=== PATIENT | female | born 2000 | race Caucasian/White ===

== ENCOUNTER 2020-03-25 23:48 | Emergency (ER) | payer OTHER, SELFPAY ==
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
[2020-03-26 00:21] VITALS: BP 126/83; PULSE 102; RESP 18; TEMP 36.5; O2SAT 100
[2020-03-26] MEDS: IBUPROFEN 400 MG TABLET PO (02:40)
[2020-03-26] MEDS: CYCLOBENZAPRINE HCL 10 MG TABLET 5 MG PO (02:40)
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
[2020-03-26 04:15] VITALS: BP 99/69; PULSE 70; RESP 16; TEMP 36.4; O2SAT 99
== END 2020-03-26 04:16 | disposition home or self-care (01) ==
PROVIDERS: Emergency Provider General Practice; PCP Nurse Practitioner Family
DX: S16.1XXA Strain of muscle, fascia and tendon at neck level, initial encounter (principal); V43.52XA Car driver injured in collision with other type car in traffic accident, initial encounter
CPT/HCPCS: 72125; 99284; A9270; L0140

== ENCOUNTER 2021-05-22 12:15 | Emergency (ER) | payer OTHER, SELFPAY ==
--- NOTE | 2021-05-22 12:19 | ED.SKABFB ---
HPI - Skin/Abscess/Foreign Bdy General Chief complaint: Wound/Laceration Stated complaint: pos belly button infection Time Seen by Provider: 05/22/21 12:19 Source: patient and RN notes reviewed History of Present Illness HPI narrative: Patient is a 20-year-old female who presents the urgent care with complaints of a possible bellybutton infection. Patient states that she had a bellybutton ring which she took out today. States that for the last week or so she has been using alcohol around the area due to redness and drainage. Patient states it worsened last night and was starting to pus . Patient denies of fever, chills, nausea, vomiting. No other acute complaints. No acute distress noted patient read the plan of care. Some parts of this dictation were generated by voice recognition software and may contain typographical and/or grammatical inaccuracies. Related Data Allergies Allergy/AdvReac Type Severity Reaction Status Date / Time No Known Allergies Allergy Verified 05/22/21 12:25 Review of Systems Review of Systems: CONSTITUTIONAL: Denies fever, chills, or sweats. EYES: Denies visual changes, redness, or discharge. ENT: Denies rhinorrhea, congestion, sore throat, or otalgia. CARDIOVASCULAR: Denies chest pain, palpitations, or edema. RESPIRATORY: Denies cough or dyspnea. GASTROINTESTINAL: Denies abdominal pain, nausea, vomiting, or diarrhea. GENITOURINARY: Denies dysuria or hematuria. SKIN: Reports of redness, pain and swelling around the bellybutton. MUSCULOSKELETAL: Denies back pain, joint pain, or myalgia. NEUROLOGIC: Denies headache, numbness, or weakness. All other systems reviewed are negative, except as documented in HPI. [facility] Past Medical History Medical History (Updated 05/22/21 @ 12:35 by JUNIOR Christine) Patient denies medical problems Surgical History Surgical History (Updated 03/26/20 @ 04:06 by Brenda Solis MD) No pertinent past surgical history Social History Social History (Updated 03/26/20 @ 04:06 by Brenda Solis MD) Smoking status: Never smoker Comments At the time of my signature, I reviewed and agree with the nursing past medical, surgical, social, and family history. There is no relevant family history pertinent to the patient complaint. Exam Narrative: GENERAL: This is a well-nourished, well-developed patient, in no apparent distress. HEAD: normocephalic, atraumatic. EYES: PERRL. Sclera clear/white. Vision is grossly intact. EARS: External ears normal NOSE: External nose normal with no obvious nasal discharge, nares without redness, no rhinorrhea. THROAT: Mucous membranes moist NECK: Neck supple CARDIOVASCULAR: Regular rate and rhythm without murmurs, gallops, or rubs. RESPIRATORY: Clear to auscultation. Breath sounds equal bilaterally. No wheezes, rales, or rhonchi. SKIN: 1 x 1 cm area of erythema and firmness to the bellybutton region with slight erythemic haloing surrounding the entire bellybutton and scant yellow to clear drainage. Warm, intact with no suspicious lesions or rash, good texture and turgor. NEURO: awake, alert, and oriented to person, place and time. There were no obvious focal neurologic abnormalities. EXTREMITIES: No clubbing, cyanosis, or edema. Course Vital Signs Vital signs: Vital Signs Temperature 98.7 F 05/22/21 12:20 Pulse Rate 88 05/22/21 12:20 Respiratory Rate 16 05/22/21 12:20 Blood Pressure 118/77 05/22/21 12:20 Pulse Oximetry 100 05/22/21 12:20 Temperature 98.7 F 05/22/21 12:20 Pulse Rate 88 05/22/21 12:20 Respiratory Rate 16 05/22/21 12:20 Blood Pressure 118/77 05/22/21 12:20 Pulse Oximetry 100 05/22/21 12:20 Reviewed MDM - Skin/Abscess/Foreign Bdy MDM Narrative Medical decision making narrative: Advised patient to complete the oral antibiotic regimen as prescribed. Be sure to eat and drink with the medication. Clean the bellybutton with plain Dial soap and water. Make sure the bel
[2021-05-22 12:20] VITALS: BP 118/77; PULSE 88; RESP 16; TEMP 37.1; O2SAT 100
== END 2021-05-22 12:52 | disposition home or self-care (01) ==
PROVIDERS: Emergency Provider Nurse Practitioner Family; PCP Nurse Practitioner Family
DX: L03.316 Cellulitis of umbilicus (principal); L53.9 Erythematous condition, unspecified
CPT/HCPCS: 99213; G0463

== ENCOUNTER 2021-07-29 18:40 | Emergency (ER) | payer OTHER, SELFPAY ==
[2021-07-29 18:50] VITALS: BP 146/88; PULSE 107; RESP 16; TEMP 36.7; O2SAT 100
--- NOTE | 2021-07-29 18:52 | ED.GENADULT ---
HPI - General Adult General Chief complaint: Skin/Abscess/Foreign Body Stated complaint: Rash all over. Time Seen by Provider: 07/29/21 18:52 Source: patient Mode of arrival: ambulatory Limitations: no limitations History of Present Illness HPI narrative: 21-year-old female patient presents to the [facility] with complaints of a rash for the past 3 weeks. Patient states it started around the vaginal area and she went to her primary doctor and states that he gave her fluconazole because they thought it was yeast. Patient states she took econazole but states she continues to have the rash and now it is spread to bilateral lower extremities and bilateral upper extremities. Patient states she has been itching a lot lately. Denies any new pets to the house. Patient states nobody else in the house has the rash except for her. Patient states she has not been anywhere new or slept in any new places recently. Denies any new detergents, lotions. Related Data Allergies Allergy/AdvReac Type Severity Reaction Status Date / Time No Known Allergies Allergy Verified 05/22/21 12:25 Review of Systems Review of Systems: CONSTITUTIONAL: Denies fever, chills, or sweats. EYES: Denies visual changes, redness, or discharge. ENT: Denies rhinorrhea, congestion, sore throat, or otalgia. CARDIOVASCULAR: Denies chest pain, palpitations, or edema. RESPIRATORY: Denies cough or dyspnea. GASTROINTESTINAL: Denies abdominal pain, nausea, vomiting, or diarrhea. GENITOURINARY: Denies dysuria or hematuria. SKIN: Positive rash and itching x3 weeks MUSCULOSKELETAL: Denies back pain, joint pain, or myalgia. NEUROLOGIC: Denies headache, numbness, or weakness. PSYCHIATRIC: Denies anxiety or depression. [facility] Past Medical History Medical History Patient denies medical problems Surgical History Surgical History No pertinent past surgical history Family History Family History (Updated 07/29/21 @ 18:53 by JUNIOR Lozano) Other Cerebrovascular accident Hypertension Social History Social History Smoking status: Never smoker Comments At the time of my signature I agree with nursing past medical history, surgical, social, and family history. There is no relevant family history pertinent to the presenting complaint. Exam Narrative: GENERAL: Well-appearing, well-nourished, and in no acute distress. HEAD: Normocephalic, atraumatic. EYES: PERRLA and EOMI. ENT: Nares clear, no rhinorrhea or epistaxis. Mucous membranes moist. NECK: Supple. No lymphadenopathy CHEST: Clear to auscultation. No respiratory distress. HEART: Regular rate and rhythm. No murmur heard. Normal peripheral pulses. ABDOMEN: Soft, nontender, nondistended, normal active bowel sounds. EXTREMITIES: Normal range of motion. No edema. SKIN: Warm, dry, patient has small petechiae looking rash on dry foundation noted to bilateral arms and left leg. No open wounds or drainage. NEURO: No focal deficits. Alert and oriented x3. Course Course Level of Care: Express Care Visit Vital Signs Vital signs: Vital Signs Temperature 36.7 C 07/29/21 18:50 Pulse Rate 107 H 07/29/21 18:50 Respiratory Rate 16 07/29/21 18:50 Blood Pressure 146/88 H 07/29/21 18:50 Pulse Oximetry 100 07/29/21 18:50 Temperature 36.7 C 07/29/21 18:50 Pulse Rate 107 H 07/29/21 18:50 Respiratory Rate 16 07/29/21 18:50 Blood Pressure 146/88 H 07/29/21 18:50 Pulse Oximetry 100 07/29/21 18:50 Vital signs reviewed The patient has been informed that they may have pre-hypertension or Hypertension based on a BP reading in the department. I recommend that the patient call the primary care provider listed on their discharge instructions or a physician of their choice this week to arrange follow up for further evaluation of possible pre-
== END 2021-07-29 19:06 | disposition home or self-care (01) ==
PROVIDERS: Emergency Provider Nurse Practitioner Family; PCP Nurse Practitioner Family
DX: R21 Rash and other nonspecific skin eruption (principal)
CPT/HCPCS: 99213; G0463

== ENCOUNTER 2021-07-29 23:28 | Emergency (ER) | payer OTHER, SELFPAY ==
[2021-07-29 23:31] VITALS: BP 136/86; PULSE 99; RESP 20; TEMP 36.4; O2SAT 99
--- NOTE | 2021-07-30 02:32 | ED.GENADULT ---
HPI - General Adult General Chief complaint: Wound/Laceration Stated complaint: Right index finger lac Time Seen by Provider: 07/30/21 01:18 History of Present Illness HPI narrative: Patient is a 21-year-old female who presents to the emergency department with chief complaint of laceration to right index finger. The patient reports she was working with a new suture kit at home while she is in a [employer] program and had a scalpel that hit the top of her right index finger. The patient states she has a small laceration that continued to bleed and she came to the emergency department for evaluation. The patient reports her tetanus status is up-to-date. The patient reports she is able to move her finger denies any numbness or tingling. Related Data Allergies Allergy/AdvReac Type Severity Reaction Status Date / Time No Known Allergies Allergy Verified 07/29/21 23:34 Review of Systems Review of Systems: A 10 system review of systems was completed on the patient and is negative except for what is stated in the HPI. Nursing and ancillary documentation was reviewed. PMFSH Past Medical History Medical History Patient denies medical problems Surgical History Surgical History No pertinent past surgical history Family History Family History Other Cerebrovascular accident Hypertension Social History Social History Smoking status: Never smoker Exam Narrative: GENERAL: Well-appearing, well-nourished, and in no acute distress. HEAD: Normocephalic, atraumatic. EYES: PERRLA and EOMI. ENT: Nares clear, no rhinorrhea or epistaxis. Mucous membranes moist. NECK: Supple. CHEST: Clear to auscultation. No respiratory distress. HEART: Regular rate and rhythm. No murmur heard. Normal peripheral pulses. ABDOMEN: Soft, nontender, nondistended, normal active bowel sounds. EXTREMITIES: Normal range of motion. No edema. There is a 1/2 cm laceration to the dorsum of the right index finger SKIN: Warm, dry, no rash. NEURO: No focal deficits. Alert and oriented x3. PSYCH: Normal mood and affect. Course Vital Signs Vital signs: Vital Signs Temperature 36.4 C L 07/29/21 23:31 Pulse Rate 99 07/29/21 23:31 Respiratory Rate 20 07/29/21 23:31 Blood Pressure 136/86 07/29/21 23:31 Pulse Oximetry 99 07/29/21 23:31 Temperature 36.4 C L 07/29/21 23:31 Pulse Rate 99 07/29/21 23:31 Respiratory Rate 20 07/29/21 23:31 Blood Pressure 136/86 07/29/21 23:31 Pulse Oximetry 99 07/29/21 23:31 Procedures Laceration Laceration 1: Date: 07/30/21 Time: 02:34 Site: hand (Right index finger) Side (If applicable): right Size (cm): 0.5 Description: linear Depth: simple, single layer Local Anesthetic: lidocaine 1% Amount of anesthesia used (mL): 2 Pre-repair: wound explored and irrigated ====== Skin Level ====== Skin layer closed with: nylon Size (cm): 4-0 Number of sutures: 2 Technique: simple, interrupted ====== Subcutaneous Layer ====== ====== Muscle Layer ====== ====== Tendon Layer ====== Medical Decision Making Vital Signs Vital Signs: Vital Signs Temperature 36.4 C L 07/29/21 23:31 Pulse Rate 99 07/29/21 23:31 Respiratory Rate 20 07/29/21 23:31 Blood Pressure 136/86 07/29/21 23:31 Pulse Oximetry 99 07/29/21 23:31 Temperature 36.4 C L 07/29/21 23:31 Pulse Rate 99 07/29/21 23:31 Respiratory Rate 20 07/29/21 23:31 Blood Pressure 136/86 07/29/21 23:31 Pulse Oximetry 99 07/29/21 23:31 Discharge Plan Discharge Clinical Impression: Laceration of right index finger Qualifiers: Encounter type: initial encou
== END 2021-07-30 02:57 | disposition home or self-care (01) ==
PROVIDERS: Emergency Provider Emergency Medicine; PCP Nurse Practitioner Family
DX: S61.210A Laceration without foreign body of right index finger without damage to nail, initial encounter (principal); W26.8XXA Contact with other sharp object(s), not elsewhere classified, initial encounter
CPT/HCPCS: 12001; 99213; 99282; G0463

== ENCOUNTER 2022-03-26 18:04 | Emergency (ER) | payer OTHER, SELFPAY ==
[2022-03-26] VITALS (10 sets, daily range): BP systolic 114–138; BP diastolic 75–90; PULSE 87; RESP 16; TEMP 36.9; O2SAT 98–100
--- NOTE | ~2022-03-26 | CT_ITS ---
EXAMINATION: CT brain wo con DATE: 03/26/2022 21:30 INDICATION: syncope, seizure-like activity? . TECHNIQUE: Computed tomography (CT) of the head was performed without intravenous contrast. The mA wa s adjusted according to patient size. Iterative reconstruction technique was employed. The dose-lengt h product was 605.33 mGy-cm. COMPARISON: None FINDINGS: No acute intracranial hemorrhage or extra-axial fluid collection. No hydrocephalus, mass, or herniation. No acute ischemic infarct. Unremarkable dural venous sinus attenuation. No acute osseous abnormality. The aerated spaces are clear. IMPRESSION: No acute intracranial process. Reviewed, dictated and finalized at location [facility].
--- NOTE | 2022-03-26 18:40 | ECG_ITS ---
Measurements Intervals [place] Rate: 84 P: 61 [place]: 146 QRS: 72 QRSD: 76 T: 47 QT: 361 QTc: 427 Interpretive Statements SINUS RHYTHM WITH SINUS ARRHYTHMIA NORMAL ECG NO PREVIOUS ECG AVAILABLE FOR COMPARISON Electronically Signed On 03-26-2022 20:43:43 CDT by Rick Patel D.O.
[2022-03-26 18:55] LABS: Basophils Absolute Auto 0.1 K/mm3 (0.0-0.1); Basophils Percent Auto 0.5 % (0.2-1.2); Eosinophils Absolute Auto 0.1 K/mm3 (0-0.3); Eosinophils Percent Auto 1.2 % (0-4.4); Hematocrit 40.7 % (37.0-47.0); Hemoglobin 13.5 g/dL (12.0-15.0); Immature Granulocyte Absolute 0.03 K/mm3 (0.00-0.031); Immature Granulocyte Percent A 0.3 % (0-0.5); Lymphocytes Absolute Auto 1.95 K/mm3 (0.9-3.2); Lymphocytes Percent Auto 21.2 % (18.3-44.2); Mean Corpuscular HGB Conc 33.2 g/dl (32-36); Mean Corpuscular Hemoglobin 28.2 pg (26-34); Monocytes Absolute Auto 0.7 K/mm3 (0.1-0.6); Neutrophils Absolute Auto 6.3 K/mm3 (1.3-6.7); Neutrophils Percent Auto 68.8 % (45.5-73.1); Platelet Count Result 256 k/mm3 (150-375); Red Blood Count 4.79 M/mm3 (4.2-5.4); Red Cell Distribution Width 13.2 % (11.5-14.5); White Blood Count 9.2 K/mm3 (4.5-10.0)
[2022-03-26 19:10] LABS: Alanine Aminotransferase 16 U/L (6-35); Albumin Level 4.7 g/dL (3.5-5.1); Alkaline Phosphatase 62 U/L (38-126); Anion Gap 15 mmol/L (8-16); Aspartate Amino Transferase 23 U/L (14-36); Bilirubin,Total 0.4 mg/dL (0.2-1.3); Blood Urea Nitrogen 14 mg/dL (7-17); Calcium 8.9 mg/dL (8.4-10.2); Carbon Dioxide 22 mmol/L (22-30); Chloride 103 mmol/L (98-107); Estimated CRCL calculation 107 ml/min; Estimated Glomerular Filt Rate > 60; Glucose 79 mg/dL (65-110); Potassium 3.5 mmol/L (3.4-5.0); Sodium 140 mmol/L (137-145)
--- NOTE | 2022-03-26 20:58 | ED.SYNCOPE ---
HPI - Syncope General Chief Complaint: Syncope Stated Complaint: passed out, LOC, convulsions Time Seen by Provider: 03/26/22 20:51 History of Present Illness HPI narrative: Patient is a 21-year-old female here for evaluation of syncopal episode earlier today. 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 Patient stepped back from surgery, fell down and had loss of consciousness for about 30 seconds. Patient states that are not watching stated that she turned bishop , and possibly had convulsions, although patient denies any history of seizures. Patient came to afterwards and is not amnestic to the events leading up to the syncopal episodes of the events afterwards. She states that she has diffuse headache currently, denies any nausea, vomiting, chest pain, shortness of breath, leg swelling, fevers or chills. Related Data Home Medications Medication Instructions Recorded Confirmed escitalopram oxalate 10 mg tablet 10 mg PO DAILY 03/01/22 03/01/22 (Lexapro) Allergies Allergy/AdvReac Type Severity Reaction Status Date / Time No Known Allergies Allergy Verified 03/06/22 14:43 Review of Systems Review of Systems: Gen.: Reports syncopal episode earlier today. Denies fevers or chills Eyes: Denies eye pain or visual change ENT: Denies congestion Respiratory: Denies shortness of breath or cough CV: Denies chest pain or palpitations GI: Denies abdominal pain nausea, emesis or diarrhea denies burning, urgency, frequency or hematuria Musculoskeletal: Denies back pain or muscle pain Neuro: Reports headache. Denies numbness, tingling, weakness or focal weakness Skin: Denies rash Except as documented, all other systems reviewed and negative [facility] Past Medical History Medical History Patient denies medical problems Surgical History Surgical History No pertinent past surgical history Family History Family History Other Cerebrovascular accident Hypertension Uterine cancer Social History Social History Smoking status: Never smoker Alcohol intake: never Substance use: never Gender identity (if verbalized by the patient): Female Sexual Orientation (if Verbalized by the Patient): Straight or Heterosexual Exam Narrative: APPEARANCE: Well appearing, no pain in distress, well-nourished. Head: Normocephalic and atraumatic. EYES: PERRLA/EOMI, conjunctivae clear NOSE: No nasal drainage EARS: External ear normal in appearance THROAT: Oropharynx is clear. Mucous membranes are moist. NECK: Supple. No adenopathy, no masses. RESPIRATORY: Airway patent, respirations nonlabored. Clear to auscultation bilaterally, no rales, rhonchi, wheezing. CARDIOVASCULAR: Regular rate and rhythm without murmurs, rubs, or gallops. ABDOMINAL: Normoactive bowel sounds. Soft, nontender, nondistended. No rebound tenderness or guarding. MUSCULOSKELETAL: No calf tenderness. Extremities are warm and well-perfused. Moves all extremities well. No edema. NEURO: Cranial nerves II through XII intact. Normal speech. No focal neurologic deficits. SKIN: Skin is warm and dry. No rashes. PSYCHIATRIC: Normal affect/mood. Course Vital Signs Vital signs: Vital Signs Temperature 98.4 F 03/26/22 18:36 Pulse Rate 87 03/26/22 18:36 Respiratory Rate 16 03/26/22 18:36 Blood Pressure 138/90 03/26/22 18:36 Pulse Oximetry 100 03/26/22 18:36 Oxygen Delivery Room Air 03/26/22 18:36 Temperature 98.4 F 03/26/22 18:36 Pulse Rate 87 03/26/22 18:36 Respiratory Rate 16 03/26/22 18:36 Blood Pressure 114/77 03/26/22 21:33 Pulse Oximetry 100 03/26/22 21:50 Oxygen Delivery Ro
[2022-03-26] MEDS: ACETAMINOPHEN 325 MG TABLET 650 MG PO (21:41)
== END 2022-03-26 22:00 | disposition home or self-care (01) ==
PROVIDERS: Emergency Medicine; Emergency Provider Emergency Medicine; PCP Nurse Practitioner Family
DX: R55 Syncope and collapse (principal)
CPT/HCPCS: 36415; 70450; 80053; 81025; 85025; 93005; 99284; A9270

== ENCOUNTER 2022-05-10 04:42 | Emergency (ER) | payer OTHER, SELFPAY ==
[2022-05-10 04:47] VITALS: BP 134/86; PULSE 107; RESP 18; TEMP 36.9; O2SAT 100
--- NOTE | 2022-05-10 05:10 | ED.GENADULT ---
HPI - General Adult General Chief complaint: Unspecified Stated complaint: sore throat Time Seen by Provider: 05/10/22 04:43 History of Present Illness HPI narrative: Patient is a 21-year-old female who presents ER with sore throat. Ongoing for 5 days. Associated with fever. No cough. No runny nose. Exposed to a friend with strep. Went to urgent care and had a negative test. Patient believes test was inadequate. Related Data Home Medications Medication Instructions Recorded Confirmed escitalopram oxalate 10 mg tablet 10 mg PO DAILY 03/01/22 03/01/22 (Lexapro) Allergies Allergy/AdvReac Type Severity Reaction Status Date / Time No Known Allergies Allergy Verified 03/06/22 14:43 Review of Systems Review of Systems: All systems reviewed & are unremarkable except as noted in HPI and below Constitutional: Constitutional: Reports chills, Denies fatigue and Reports fever(s) ENT: Denies nasal congestion, Denies nasal discharge, Reports sore throat and Denies throat swelling Respiratory: Respiratory: Denies cough, Denies dyspnea and Denies wheezing PMFSH Past Medical History Medical History Patient denies medical problems Surgical History Surgical History No pertinent past surgical history Family History Family History Other Cerebrovascular accident Hypertension Uterine cancer Social History Social History Smoking status: Never smoker Alcohol intake: never Substance use: never Gender identity (if verbalized by the patient): Female Sexual Orientation (if Verbalized by the Patient): Straight or Heterosexual Exam Narrative: GENERAL: Well-appearing, well-nourished, and in no acute distress. HEAD: Normocephalic, atraumatic. ENT: Mucous membranes moist. Pharyngeal erythema without tonsillar hypertrophy or exudate. NECK: Supple. CHEST: Clear to auscultation. No respiratory distress. HEART: Regular rate and rhythm. Normal peripheral pulses. EXTREMITIES: Normal range of motion. No edema. NEURO: Alert and oriented x3. PSYCH: Normal mood and affect. Course Course Emergency Course: Strep negative. Will not start your 12 L fluid was finished as beyond treatment line does and is low risk from having any complications. Discharge home. Vital Signs Vital signs: Vital Signs Temperature 98.5 F 05/10/22 04:47 Pulse Rate 107 H 05/10/22 04:47 Respiratory Rate 18 05/10/22 04:47 Blood Pressure 134/86 05/10/22 04:47 Pulse Oximetry 100 05/10/22 04:47 Oxygen Delivery Room Air 05/10/22 04:47 Temperature 98.5 F 05/10/22 04:47 Pulse Rate 107 H 05/10/22 04:47 Respiratory Rate 18 05/10/22 04:47 Blood Pressure 134/86 05/10/22 04:47 Pulse Oximetry 100 05/10/22 04:47 Oxygen Delivery Room Air 05/10/22 04:47 Medical Decision Making Vital Signs Vital Signs: Vital Signs Temperature 98.5 F 05/10/22 04:47 Pulse Rate 107 H 05/10/22 04:47 Respiratory Rate 18 05/10/22 04:47 Blood Pressure 134/86 05/10/22 04:47 Pulse Oximetry 100 05/10/22 04:47 Oxygen Delivery Room Air 05/10/22 04:47 Temperature 98.5 F 05/10/22 04:47 Pulse Rate 107 H 05/10/22 04:47 Respiratory Rate 18 05/10/22 04:47 Blood Pressure 134/86 05/10/22 04:47 Pulse Oximetry 100 05/10/22 04:47 Oxygen Delivery Room Air 05/10/22 04:47 Lab Data Labs: Strep Screen Presumptive Negative *(Reference Range: Negative)* Discharge Plan Discharge Clinical Impression: Pharyngitis Patient Disposition: Home, Self-Care Condition: Stable Instructions: Pharyngitis (ED) Additional Instructions: Return to the ER if you cannot breathe, you cannot swallow, or you have carolann
== END 2022-05-10 05:22 | disposition home or self-care (01) ==
PROVIDERS: Emergency Provider Emergency Medicine; PCP Nurse Practitioner Family
DX: J02.9 Acute pharyngitis, unspecified (principal)
CPT/HCPCS: 87081; 87147; 87880; 99283

== ENCOUNTER 2022-10-19 21:11 | Emergency (ER) | payer OTHER, SELFPAY ==
--- NOTE | ~2022-10-19 | XR_ITS ---
EXAMINATION: XR chest 2V DATE: 10/20/2022 01:36 INDICATION: Cough and shortness of breath TECHNIQUE: PA and lateral views of the chest are obtained. COMPARISON: 06/27/2022 FINDINGS: The lungs are free of acute opacities. No pleural effusion or pneumothorax. The cardiomedia stinal silhouette is normal. The visualized bones and soft tissues are unremarkable. IMPRESSION: 1. No acute cardiopulmonary abnormality. Reviewed, dictated and finalized at location A.
[2022-10-19 21:25] VITALS: BP 116/66; PULSE 134; RESP 24; TEMP 37.9; O2SAT 100
[2022-10-19 21:47] LABS: Basophils Absolute Auto 0.1 K/mm3 (0.0-0.1); Basophils Percent Auto 0.3 % (0.2-1.2); Eosinophils Percent Auto 0.1 % (0-4.4); Hematocrit 40.6 % (37.0-47.0); Hemoglobin 13.9 g/dL (12.0-15.0); Immature Granulocyte Absolute 0.09 K/mm3 (0.00-0.031); Immature Granulocyte Percent A 0.5 % (0-0.5); Lymphocytes Absolute Auto 0.59 K/mm3 (0.9-3.2); Lymphocytes Percent Auto 3.1 % (18.3-44.2); Mean Corpuscular HGB Conc 34.2 g/dl (32-36); Mean Corpuscular Hemoglobin 28.6 pg (26-34); Mean Corpuscular Volume 83.5 fl (80-100); Monocytes Absolute Auto 0.9 K/mm3 (0.1-0.6); Monocytes Percent Auto 4.7 % (2.6-8.5); Neutrophils Absolute Auto 17.3 K/mm3 (1.3-6.7); Neutrophils Percent Auto 91.3 % (45.5-73.1); Platelet Count Result 271 k/mm3 (150-375); Red Blood Count 4.86 M/mm3 (4.2-5.4); Red Cell Distribution Width 12.8 % (11.5-14.5)
[2022-10-19 21:59] LABS: Alanine Aminotransferase 19 U/L (6-35); Albumin Level 4.6 g/dL (3.5-5.1); Alkaline Phosphatase 71 U/L (38-126); Anion Gap 12 mmol/L (8-16); Aspartate Amino Transferase 30 U/L (14-36); Blood Urea Nitrogen 8 mg/dL (7-17); Calcium 9.1 mg/dL (8.4-10.2); Carbon Dioxide 19 mmol/L (22-30); Chloride 106 mmol/L (98-107); Estimated CRCL calculation 117 ml/min; Estimated Glomerular Filt Rate > 60; Glucose 117 mg/dL (65-110); Potassium 3.5 mmol/L (3.4-5.0); Sodium 137 mmol/L (137-145)
[2022-10-19 22:11] LABS: Strep Group A RT-PCR NOT DETECTED (Negative)
[2022-10-19 22:22] LABS: Influenza A QL RT-PCR Negative (Negative); Influenza B QL RT-PCR Negative (Negative); RSV RNA, RT-PCR Negative (Negative); SARS-CoV-2 RNA PCR Negative
[2022-10-20] VITALS (10 sets, daily range): BP systolic 96–112; BP diastolic 62–77; PULSE 92–96; RESP 16; O2SAT 99–100
[2022-10-20] MEDS: ONDANSETRON INJ 4 MG/2 ML VIAL IV PUSH (01:51)
[2022-10-20] MEDS: SODIUM CHLORIDE 0.9% IV 1,000 ML 999 ML IV CONT ×2 (01:52→03:02)
[2022-10-20 02:29] LABS: Lactic Acid Reflex 2.2 mmol/L (0.7-2.0)
[2022-10-20 02:36] LABS: Appearance Urine Cloudy (Clear); Bacteria Urine Rare /hpf; Bilirubin Urine Negative (Negative); Blood Urine Negative (Negative); Color Urine Dark Yellow (Yellow); Glucose Urine UA Negative (Negative); Ketones Urine 2+ mg/dL (Negative); Leukocyte Esterase Ur Trace LEU/UL (Negative); Mucus Urine Present /lpf; Nitrate Urine Negative (Negative); Protein Urine 2+ mg/dL (Negative); Squamous Epithelial Cell Urine Occasional /hpf (Few); WBC Urine 0-5 /hpf; pH Urine 7.5 (5.0-9.0)
[2022-10-20 02:37] LABS: Specific Grav Ur 1.037 (1.001-1.035)
[2022-10-20 02:38] LABS: Add Urine Microscopic? YES
[2022-10-20 03:03] LABS: Monoscreen Negative (Negative); Negative Monotest Control Negative (Negative); Positive Monotest Control Positive (Positive)
--- NOTE | 2022-10-20 03:48 | ED.GENADULT ---
HPI - General Adult General Chief complaint: Fever Stated complaint: Fever, nasuea, weakness, ST, from Time Seen by Provider: 10/20/22 01:00 History of Present Illness HPI narrative: Patient 22-year-old female who presents emerged part with chief complaint of sore throat. Patient reports that for several days she has had a sore throat generalized body aches little bit of nasal congestion and reports that she went to urgent care. The patient states she was sent to the emergency department because she was running a fever and was tachycardic. Patient states with symptoms or not improved by anything. Related Data Home Medications Medication Instructions Recorded Confirmed escitalopram oxalate 10 mg tablet 10 mg PO DAILY 03/01/22 03/01/22 (Lexapro) Allergies Allergy/AdvReac Type Severity Reaction Status Date / Time No Known Allergies Allergy Verified 10/19/22 21:30 Review of Systems Review of Systems: A 10 system review of systems was completed on the patient and is negative except for what is stated in the HPI. Nursing and ancillary documentation was reviewed. [facility] Past Medical History Medical History Patient denies medical problems Surgical History Surgical History No pertinent past surgical history Family History Family History Other Cerebrovascular accident Hypertension Uterine cancer Social History Social History Smoking status: Never smoker Alcohol intake: never Substance use: never Living arrangements: alone Occupation/Education: occupation Gender identity (if verbalized by the patient): Female Sexual Orientation (if Verbalized by the Patient): Straight or Heterosexual Exam Narrative: GENERAL: Well-appearing, well-nourished, and in no acute distress. HEAD: Normocephalic, atraumatic. EYES: PERRLA and EOMI. ENT: Nares clear, no rhinorrhea or epistaxis. Mucous membranes moist. There is slight erythema of the oropharynx NECK: Supple. CHEST: Clear to auscultation. No respiratory distress. HEART: Regular rate and rhythm. No murmur heard. Normal peripheral pulses. ABDOMEN: Soft, nontender, nondistended, normal active bowel sounds. EXTREMITIES: Normal range of motion. No edema. SKIN: Warm, dry, no rash. NEURO: No focal deficits. Alert and oriented x3. PSYCH: Normal mood and affect. Course Vital Signs Vital signs: Vital Signs Temperature 37.9 C H 10/19/22 21:25 Pulse Rate 134 H 10/19/22 21:25 Respiratory Rate 24 H 10/19/22 21:25 Blood Pressure 116/66 10/19/22 21:25 Pulse Oximetry 100 10/19/22 21:25 Oxygen Delivery Room Air 10/19/22 21:25 Temperature 37.9 C H 10/19/22 21:25 Pulse Rate 92 10/20/22 03:04 Respiratory Rate 16 10/20/22 03:04 Blood Pressure 102/70 10/20/22 03:04 Pulse Oximetry 99 10/20/22 03:04 Oxygen Delivery Room Air 10/19/22 21:25 Medical Decision Making MDM Narrative Medical decision making narrative: Differential diagnosis includes viral syndrome, strep pharyngitis, mono, COVID, influenza Laboratory studies were obtained which showed a white blood cell count of 19,000. The patient had a lactic acid of 2.2 upon initial arrival electrolytes were otherwise within normal limits. Urinalysis showed no evidence of UTI but did have specific gravity of 1037 and 2+ ketones. Alexander was negative influenza negative RSV was negative strep was also negative. Patient received 2 L of normal saline Vital Signs Vital Signs: Vital Signs Temperature 37.9 C H 10/19/22 21:25 Pulse Rate 134 H 10/19/22 21:25 Respiratory Rate 24 H 10/19/22 21:25 Blood Pressure 116/66 10/19/22 21:25 Pulse Oximetry 100 10/19/22 21:25 Oxygen Delivery Room Air 10/19/22 21:25 T
[2022-10-20 05:15] LABS: Reflex Lactic Acid Yes or No Add Lactic
== END 2022-10-20 04:13 | disposition home or self-care (01) ==
PROVIDERS: Emergency Provider Emergency Medicine; PCP Nurse Practitioner Family
DX: J02.9 Acute pharyngitis, unspecified (principal); Z20.822 Contact with and (suspected) exposure to COVID-19
CPT/HCPCS: 36415; 71046; 80053; 81001; 81025; 83605; 85025; 86308; 87637; 87651; 96361; 96365; 96375; 99284; J0131; J2405; J7030

== ENCOUNTER 2023-03-12 16:20 | Outpatient (CLI) | payer OTHER, MEDICAID, SELFPAY ==
[2023-03-12 17:23] LABS: Basophils Percent Auto 0.5 % (0.2-1.2); Eosinophils Absolute Auto 0.1 K/mm3 (0-0.3); Eosinophils Percent Auto 0.7 % (0-4.4); Hematocrit 42.2 % (37.0-47.0); Hemoglobin 13.8 g/dL (12.0-15.0); Immature Granulocyte Absolute 0.02 K/mm3 (0.00-0.031); Immature Granulocyte Percent A 0.2 % (0-0.5); Lymphocytes Absolute Auto 1.61 K/mm3 (0.9-3.2); Lymphocytes Percent Auto 19.9 % (18.3-44.2); Mean Corpuscular HGB Conc 32.7 g/dl (32-36); Mean Corpuscular Hemoglobin 27.9 pg (26-34); Mean Corpuscular Volume 85.3 fl (80-100); Mean Platelet Volume 11.9 fl (7.4-10.4); Monocytes Absolute Auto 0.5 K/mm3 (0.1-0.6); Monocytes Percent Auto 6.3 % (2.6-8.5); Neutrophils Absolute Auto 5.9 K/mm3 (1.3-6.7); Neutrophils Percent Auto 72.4 % (45.5-73.1); Platelet Count Result 268 k/mm3 (150-375); Red Blood Count 4.95 M/mm3 (4.2-5.4); Red Cell Distribution Width 13.1 % (11.5-14.5); White Blood Count 8.1 K/mm3 (4.5-10.0)
[2023-03-12 17:35] LABS: Alanine Aminotransferase 16 U/L (6-35); Albumin Level 4.9 g/dL (3.5-5.1); Alkaline Phosphatase 63 U/L (38-126); Anion Gap 11 mmol/L (8-16); Aspartate Amino Transferase 27 U/L (14-36); Bilirubin,Total 0.5 mg/dL (0.2-1.3); Blood Urea Nitrogen 10 mg/dL (7-17); Calcium 9.3 mg/dL (8.4-10.2); Carbon Dioxide 24 mmol/L (22-30); Chloride 105 mmol/L (98-107); Cholesterol 120 mg/dL (0-200); Estimated Glomerular Filt Rate > 60; Glucose 99 mg/dL (65-110); HDL Direct 48 mg/dL; Magnesium 2.1 mg/dL (1.6-2.3); Potassium 3.6 mmol/L (3.4-5.0); Sodium 140 mmol/L (137-145); Triglycerides 36 mg/dL (<150)
[2023-03-12 17:46] LABS: LDL Cholesterol Direct 59 mg/dL
[2023-03-12 18:46] LABS: Folic Acid > 20.0 ng/mL (2.76->20)
[2023-03-12 19:32] LABS: Vitamin D 25 Hydroxy 44.1 ng/mL
[2023-03-12 19:58] LABS: Iron 60 ug/dL (37-170); Percent Iron Saturation 14 % (20-50)
== END 2023-03-12 16:21 | disposition home or self-care (01) ==
LOC: ANHLAB 16:23
PROVIDERS: PCP Nurse Practitioner Family; Visit Provider Nurse Practitioner Family
DX: R53.83 Other fatigue (principal); Z13.220 Encounter for screening for lipoid disorders; R25.2 Cramp and spasm
CPT/HCPCS: 36415; 80053; 80061; 82306; 82607; 82728; 82746; 83036; 83540; 83550; 83735; 84443; 85025; 86038

== ENCOUNTER 2024-05-10 06:27 | Outpatient (NON) | payer OTHER, MEDICAID, SELFPAY ==
[2024-05-10 06:57] LABS: Hematocrit 38.3 % (37.0-47.0); Hemoglobin 13.1 g/dL (12.0-15.0); Mean Corpuscular HGB Conc 34.2 g/dl (32-36); Mean Corpuscular Hemoglobin 28.1 pg (26-34); Mean Platelet Volume 11.1 fl (7.4-10.4); Platelet Count Result 255 k/mm3 (150-375); Red Blood Count 4.67 M/mm3 (4.2-5.4); Red Cell Distribution Width 13.1 % (11.5-14.5); White Blood Count 6.9 K/mm3 (4.5-10.0)
[2024-05-10 07:14] LABS: Alanine Aminotransferase 16 U/L (6-35); Albumin Level 4.4 g/dL (3.5-5.1); Alkaline Phosphatase 62 U/L (38-126); Anion Gap 11 mmol/L (4-12); Aspartate Amino Transferase 27 U/L (14-36); Bilirubin,Total 0.4 mg/dL (0.2-1.3); Blood Urea Nitrogen 9 mg/dL (7-17); Calcium 9.4 mg/dL (8.4-10.2); Carbon Dioxide 25 mmol/L (22-30); Chloride 103 mmol/L (98-107); Estimated Glomerular Filt Rate > 60; Glucose 93 mg/dL (65-110); Potassium 3.9 mmol/L (3.4-5.0); Sodium 139 mmol/L (137-145)
[2024-05-10 10:01] LABS: Vitamin D 25 Hydroxy 22.5 ng/mL
== END 2024-05-10 06:28 | disposition home or self-care (01) ==
LOC: ANHLAB 06:34
PROVIDERS: PCP Obstetrics & Gynecology; Visit Provider Obstetrics & Gynecology
DX: R53.83 Other fatigue (principal)
CPT/HCPCS: 36415; 80053; 82306; 82607; 84443; 85027

== ENCOUNTER 2024-05-11 16:33 | Emergency (ER) | payer OTHER, SELFPAY ==
--- NOTE | ~2024-05-11 | XR_ITS ---
HISTORY: acute right sided neck pain no injury x 3 hrs ago COMPARISON: 03/26/2020 TECHNIQUE: 3 views of the cervical spine were performed. FINDINGS: Visualization of the cervical spine to the superior endplate of T1. Straightening and slight reversal of the normal curvature of the cervical spine is identified, possib ly muscular in origin. No prevertebral soft tissue swelling is appreciated. No acute compression fracture is noted. Limited visualization of the dens and its relationship to the pillars of C1. Air column within the trachea is midline. The visualized portions of the bilateral upper lung callaway are unremarkable. IMPRESSION: Straightening and slight reversal of the normal curvature of the cervical spine, possibly muscular in origin. Limited evaluation of the dens and its relationship to the pillars of C1, as detailed above. Reviewed, dictated and finalized at location A. ICE GIRL IMPRESSION: Straightening and slight reversal of the normal curvature of the cervical spine , possibly muscular in origin. Limited evaluation of the dens and its relationship to the pillars of C1, as de tailed above.
[2024-05-11 16:41] VITALS: BP 153/105; PULSE 108; RESP 18; TEMP 37.3; O2SAT 100
--- NOTE | 2024-05-11 17:22 | ED_ITS ---
HPI - Neck Pain/Injury General Chief Complaint: Neck Pain/Injury Stated Complaint: Neck Pain Time Seen by Provider: 05/11/24 17:15 Source: patient, RN notes reviewed and old records reviewed Mode of arrival: ambulatory Limitations: no limitations History of Present Illness HPI Narrative: 23 year old female presents to [facility] with complaints of sudden right sided neck pain which started about 2 hors ago. Patient reports that she was trying on some new clothes at home and sudden pain occurred to the right side of her neck and she had to lay down. Patient states that pain does radiate to her posterior shoulder area also. Patient reports no know injury has not lifted anything heavy at home no work related injury suspected. Patient denies any ear pain or any sore throat denies any fevers, chills or body aches. Patient denies any tingling or numbness to her upper extremities with full ROM noted. patient reports that she took Tylenol and Ibuprfen before she came to clinic with minimal decrease in pain. MD complaint: other (right neck pain) Onset (ago): hour(s) (2 hours prior to arrival) Severity scale (1-10): 7 Treatments prior to arrival: acetaminophen and ibuprofen Related Data Allergies Allergy/AdvReac Type Severity Reaction Status Date / Time No Known Allergies Allergy Verified 05/11/24 16:41 Review of Systems Review of Systems: CONSTITUTIONAL: Denies fever, chills, or sweats. EYES: Denies visual changes, redness, or discharge. ENT: Denies rhinorrhea, congestion, sore throat, or otalgia. CARDIOVASCULAR: Denies chest pain, palpitations, or edema. RESPIRATORY: Denies cough or dyspnea. GASTROINTESTINAL: Denies abdominal pain, nausea, vomiting, or diarrhea. GENITOURINARY: Denies dysuria or hematuria. SKIN: Denies rash or itching. MUSCULOSKELETAL: Reports right sided neck pain, or myalgia. NEUROLOGIC: Denies headache, numbness, or weakness. PSYCHIATRIC: Denies anxiety or depression. 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 There is no relevant family history pertinent to the presenting complaint Exam Narrative: GENERAL: Well-appearing, well-nourished, and in some acute distress related to neck pain. HEAD: Normocephalic, atraumatic. EYES: PERRLA and EOMI. ENT: Nares clear, no rhinorrhea or epistaxis. Mucous membranes moist. NECK: pain to her right side of neck increased pain with movement, no tingling or numbness to upper extremities adequate pulses to arms. Patient reports some radiation of pain to right posterior shoulder CHEST: Clear to auscultation. No respiratory distress.JONATAN 100% on room air HEART: Regular rate and rhythm. No murmur heard. Normal peripheral pulses. ABDOMEN: Soft, nontender, nondistended, normal active bowel sounds. EXTREMITIES: Normal range of motion. No edema. SKIN: Warm, dry, no rash. NEURO: No focal deficits. Alert and oriented x3. Course Course Emergency Course: Patient is aware of diagnosis, understands and agrees to treatment plan.? Anticipatory guidance given.? Patient agrees to follow-up as directed and is aware of reasons to seek care at the emergency department. Portions of this record may have been created with voice recognition software Level of Care: Express Care Visit Vital Signs Vital signs: Vital Signs Temperature 37.3 C 05/11/24 16:41 Pulse Rate 108 H 05/11/24 16:41 Respiratory Rate 18 05/11/24 16:41 Blood Pressure 153/105 H 05/11/24 16:41 Pulse Oximetry 100 05/11/24 16:41 Oxygen Delivery Room Air 05/11/24 16:41 Temperature 37.3 C 05/11/24 16:41 Pulse Rate 108 H 05/11/24 16:41 Respiratory Rate 18 05/11/24 16:41 Blood Pressure 153/105 H 05/11/24 16:41 Pulse Oximetry 100 05/11/24 16:41 Oxygen Delivery Room Air 05/11/24 16:41 Reviewed MDM - Neck Pain/Injury Differential Diagnosis Differential diagnosis: Likely disc disorder of cervical region, torticollis, strain of neck muscle and other (muscle spasm) Medical Records Attestation: I reviewed the patient's medical records. Imaging Data Attestation: I personally reviewed and interpreted this imaging study as follows: My impression: Limited straightening and slight reversal of the normal curvature of cervical spine possible muscular in origin Radiologist's impression: [facility] [address] [place] [address] XRay Report Signed Patient: Melody Michelle : 2000 MR#: [id number] Age: 23 Acct:[id number] Loc: [facility] ADM Date: 05/11/24Attending Dr: Ordering Physician: Genny Nino APRN Date of Service: 05/11/24 Procedure(s): XR cervical spine 2-3V Accession Number(s): [id number] cc: PREFABRICATOR PHYSICIAN; Genny Nino APRN~ HISTORY: acute right sided neck pain no injury x 3 hrs ago COMPARISON: 03/26/2020 TECHNIQUE: 3 views of the cervical spine were performed. FINDINGS: Visualization of the cervical spine to the superior endplate of T1. Straightening and slight reversal of the normal curvature of the cervical spine is identified, possibly muscular in origin. No prevertebral soft tissue swelling is appreciated. No acute compression fracture is noted. Limited visualization of the dens and its relationship to the pillars of C1. Air column within the trachea is midline. The visualized portions of the bilateral upper lung callaway are unremarkable. IMPRESSION: Straightening and slight reversal of the normal curvature of the cervical spine, possibly muscular in origin. Limited evaluation of the dens and its relationship to the pillars of C1, as detailed above. Reviewed, dictated and finalized at location A. TERRAIN VEHICLE RACER Dictated By: Arelis Escalante MD 05/11/241804 Signed By: <Electronically signed by Arelis Escalante MD in OV> 05/11/241806 Critical Care Time Critical Care Time Critical Care Time: No Discharge Plan Discharge Clinical Impression: Cervical paraspinal muscle spasm, Neck pain on right side Patient Disposition: Home, Self-Care Condition: Stable Instructions: Muscle Spasm (ED), Acute Neck Pain (ED) Additional Instructions: Ice and heat to the area for 20-30 minutes Gentle stretching exercises Gentle massage Caution with lifting, bending, stooping, twisting Avoid pushing, pulling take muscle relaxants as directed--caution drowsiness and no driving or alcohol Anti-inflammatory medicine as directed--take with food He may take the muscle relaxant and anti-inflammatory at the same time steroids as prescribed with food Follow-up with your PCP if not improving in 5-7 days If your symptoms persist, change or worsen significantly before you can contact your personal physician then please, without delay, go to the emergency department for further evaluation. Follow-up with PCP in 7-10 days or sooner if needed Follow up with PCP soon in regards to your blood pressure which is elevated above threshold for referral. Blood pressure above 120/80 may indicate pre- hypertension. 153/105 Prescriptions: New ibuprofen 600 mg tablet 600 mg PO QID PRN (Reason: pain) Qty: 30 0RF prednisone 20 mg tablet 20 mg PO BID Qty: 10 0RF Rx Instructions: take with food cyclobenzaprine 10 mg tablet 10 mg PO TID PRN (Reason: muscle spasm) Qty: 20 0RF Rx Instructions: no driving while taking or operating machinery absolutely no alcohol No Action norethindrone (contraceptive) 0.35 mg tablet 0.35 mg PO DAILY Qty: 84 0RF Follow-up/Referrals: PHYSICIAN,PREFABRICATOR [Primary Care Provider] - Time of Disposition: 18:14 Quality Amina Coma Scale Eyes: Open Verbal: Oriented and Alert Motor: Follows Commands [place] Coma Total Score: 15
== END 2024-05-11 18:22 | disposition home or self-care (01) ==
PROVIDERS: Emergency Provider Registered Nurse
DX: M62.838 Other muscle spasm (principal); M54.2 Cervicalgia
CPT/HCPCS: 72040; 99213; G0463

== ENCOUNTER 2024-12-25 16:16 | Emergency (ER) | payer OTHER, SELFPAY ==
[2024-12-25 16:35] VITALS: BP 128/89; PULSE 118; RESP 20; TEMP 36.7; O2SAT 99
--- NOTE | 2024-12-25 17:47 | ED.ANXIETY ---
HPI - Anxiety General Chief Complaint: Anxiety Stated Complaint: Anxiety Time Seen by Provider: 12/25/24 18:47 Focused HPI: 24 y/o F with reported hx of depression and anxiety presents to the ED for mental health. Pt states this past week she has been sleeping a lot, not eating or drinking, having a lot of anxiety. Pt states she has been thinking of her mom who 5 years ago which has heightened her emotions. Denies SI or HI. Denies hallucinations. Pt states she found some old Auvelity in her cabinet and has taken one pill a day for the past 3 days. She is not on any other psych meds. Denies drug and ETOH use. Pt states she feels very anxious. GENERAL: Anxious-appearing, well-nourished, and in no acute distress. HEAD: Normocephalic, atraumatic. CHEST: Clear to auscultation. ?No respiratory distress. HEART: Regular rate and rhythm.? NEURO: ?Alert and oriented x3. Patient screened in triage and initial orders placed.? ?Additional care and disposition to be based upon?diagnostic testing and treatment. History of Present Illness HPI narrative: Agree with the above triage. Related Data Allergies Allergy/AdvReac Type Severity Reaction Status Date / Time No Known Allergies Allergy Verified 05/11/24 16:41 Review of Systems Review of Systems: All systems reviewed & are unremarkable except as noted in HPI and below PMFSH Past Medical History Medical History Anxiety Patient denies medical problems Surgical History Surgical History No pertinent past surgical history Family History Family History Other Cerebrovascular accident Hypertension Uterine cancer Social History Social History Smoking status: Never smoker Alcohol intake: never Substance use: never Substance use type: does not use Living arrangements: alone Additional living arrangements comments: single Occupation/Education: occupation 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 HEAD: Normocephalic, atraumatic. EYES: EOMI. ENT: Nares clear, no rhinorrhea or epistaxis. Mucous membranes moist. NECK: Supple. CHEST: Clear to auscultation. No respiratory distress. HEART: Regular rate and rhythm. No murmur heard. Normal peripheral pulses. EXTREMITIES: Normal range of motion. No edema. SKIN: Warm, dry, no rash. NEURO: No focal deficits. Alert and oriented x3 PSYCH: Anxious, tearful. Denies SI or HI. No hallucinations, not responding to internal stimuli on exam. Seems to have good judgment and insight. Course Vital Signs Vital signs: Vital Signs Temperature 98.1 F 12/25/24 16:35 Pulse Rate 118 H 12/25/24 16:35 Respiratory Rate 20 12/25/24 16:35 Blood Pressure 128/89 12/25/24 16:35 Pulse Oximetry 99 12/25/24 16:35 Oxygen Delivery Room Air 12/25/24 16:35 Temperature 98.4 F 12/25/24 18:53 Pulse Rate 97 12/25/24 18:53 Respiratory Rate 20 12/25/24 18:53 Blood Pressure 122/85 12/25/24 18:53 Pulse Oximetry 100 12/25/24 18:53 Oxygen Delivery Room Air 12/25/24 16:35 MDM - Anxiety MDM Narrative Medical decision making narrative: 24-year-old female with reported history of anxiety depression presents emergency department for increase in anxiety. Patient states it is approaching the 5 years of when her mother which may be contributing to her symptoms. Patient is tachycardic in triage but is very anxious appearing, tearful. She denies SI or HI. No hallucinations or evidence of psychosis. I do not feel patient needs further workup in the emergency department and does not require inpatient admission. She is given a dose of hydroxyzine in the ED and this was sent to the pharmacy p.r.n.. She was given follow-up for PCP and return precautions. Heart rate improved prior to discharge. All questions answered. Discharged in stable condition. Discharge Plan Discharge Clinical Impression: Acute anxiety Patient Disposition: Home Condition: Stable Instructions: Antibiotic Form, Anxiety (ED) Additional Instructions: You were evaluated in the emergency department for anxiety and depression. Please follow-up closely with primary care provider. Return to the emergency department if you develop thoughts of harming herself or other people, hallucinations, or other concerning symptoms. Patient Language: Portuguese Prescriptions: New hydroxyzine HCl 25 mg tablet 25 mg PO QID PRN (Reason: anxiety) Qty: 14 0RF No Action ibuprofen 600 mg tablet 600 mg PO QID PRN (Reason: pain) Qty: 30 0RF prednisone 20 mg tablet 20 mg PO BID Qty: 10 0RF Rx Instructions: take with food cyclobenzaprine 10 mg tablet 10 mg PO TID PRN (Reason: muscle spasm) Qty: 20 0RF Rx Instructions: no driving while taking or operating machinery absolutely no alcohol norethindrone (contraceptive) 0.35 mg tablet 0.35 mg PO DAILY Qty: 28 0RF Rx Instructions: needs appointment for further refills Follow-up/Referrals: PHYSICIAN,FLEXO PRESS OPERATOR [Primary Care Provider] - Temitope Miller DO [Physician] -
[2024-12-25] MEDS: hydrOXYzine HCL 25 MG TABLET PO (18:06)
[2024-12-25 18:53] VITALS: BP 122/85; PULSE 97; RESP 20; TEMP 36.9; O2SAT 100
== END 2024-12-25 18:52 | disposition home or self-care (01) ==
LOC: ANHED 18:56
PROVIDERS: Emergency Provider Physician Assistant
DX: F41.9 Anxiety disorder, unspecified (principal)
CPT/HCPCS: 99283; A9270

== ENCOUNTER 2025-02-08 11:17 | Outpatient (CLI) | payer OTHER, SELFPAY ==
[2025-02-08 11:36] LABS: Hematocrit 42.2 % (37.0-47.0); Hemoglobin 13.5 g/dL (12.0-15.0); Mean Corpuscular HGB Conc 32.0 g/dl (32-36); Mean Corpuscular Hemoglobin 26.9 pg (26-34); Mean Corpuscular Volume 84.2 fl (80-100); Platelet Count Result 254 k/mm3 (150-375); Red Blood Count 5.01 M/mm3 (4.2-5.4); White Blood Count 6.8 K/mm3 (4.5-10.0)
--- OUTSIDE RECORDS SUMMARY | 2025-02-08 11:44 | XMS_ITS | Referral Summary ---
Author Organization [facility] Address [address] [place] [address] Care Team Providers Care Career Technology Teacher Name Role Phone Rocio Watts NP Primary Care Provider Allergies No known active allergies Medications ondansetron ODT (ZOFRAN-ODT) 4 mg disintegrating tablet Take 1 tablet (4 mg total) by mouth every 8 (eight) hours as needed for nausea or vomiting 20 tablet 3 Active metoclopramide (REGLAN) 10 mg tablet Take 1 tablet (10 mg total) by mouth 3 (three) times a day as needed (Nausea/vomi ting) 20 tablet 3 Active magnesium citrate solution Take 296 mL by mouth once for 1 dose 296 mL 3 Active nitrofurantoin monohydrate (MACROBID) 100 mg capsule Take 1 capsule (100 mg total) by mouth 2 (two) times a day 10 capsule 3 Active Social History Tobacco Use Types Packs/Day Years Used Date Smoking Tobacco: Never Smokeless Tobacco: Never Tobacco Cessation:Counseling Given: Not Answered Alcohol Use Standard Drinks/Week Comments Never 0 (1 standard drink = 0.6 oz pur e alcohol) Personal Safety Answer Date Recorded Have you ever been in or are you currently in a harmful physical or emotional relationship or is someone making you feel afraid or unsafe? Denies 05/28/2023 Comments No Sex and Gender Information Value Date Recorded Sex Assigned at Not on file Legal Sex Female 9:55 PM DIRECTOR HAIR Gender Identity Not on file Sexual Orientation Not on file Last Filed Vital Signs Vital Sign Reading Time Taken Comments Blood Pressure 110/64 06/24/2023 10:13 PM DIRECTOR HAIR Pulse 75 06/24/2023 10:13 PM DIRECTOR HAIR Temperature 36.9 C (98.4 F) 06/24/2023 7:07 PM DIRECTOR HAIR Respiratory Rate 16 06/24/2023 10:13 PM DIRECTOR HAIR Oxygen Saturation 99% 06/24/2023 10:13 PM DIRECTOR HAIR Inhaled Oxygen Concentration - - Weight 63.5 kg (140 lb) 06/24/2023 7:07 PM DIRECTOR HAIR Height 170.2 cm (5' 7) 06/24/2023 7:07 PM DIRECTOR HAIR Body Mass Index 21.93 06/24/2023 7:07 PM DIRECTOR HAIR Plan of Treatment Not on file [place] [address] [facility] ID[facility] Care Teams Career Technology Teacher Relationship Specialty Start Date End Date Rocio Watts NP [address] [place] [id number] PCP - General Nurse Practitioner 06/10/22
--- OUTSIDE RECORDS SUMMARY | 2025-02-08 11:44 | XMS_ITS | Clinical Summary ---
Author Organization [facility] Address [address] [place] [address] Care Team Providers Care Crane Hoist Or Lift Operator Name Role Phone Rocio Watts NP Primary [...] on file Legal Sex Female 9:55 PM PARALEGAL Gender Identity Not on file Sexual Orientation Not on file Obstetrics History Last Filed Vital Signs Vital Sign Reading Time Taken Comments Blood Pressure 110/64 06/24/2023 10:13 PM PARALEGAL Pulse 75 06/24/2023 10:13 PM PARALEGAL Temperature 36.9 C (98.4 F) 06/24/2023 7:07 PM PARALEGAL Respiratory Rate 16 06/24/2023 10:13 PM PARALEGAL Oxygen Saturation 99% 06/24/2023 10:13 PM PARALEGAL Inhaled Oxygen Concentration - - Weight 63.5 kg (140 lb) 06/24/2023 7:07 PM PARALEGAL Height 170.2 cm (5' 7) 06/24/2023 7:07 PM PARALEGAL Body Mass Index 21.93 06/24/2023 7:07 PM PARALEGAL Plan of Treatment Health Maintenance Due Date Last Done Comments Cervical Cancer Screening 2000 Depression Screening 2000 Hepatitis C Screening 2000 Regular Well Visit/Exam 18-64 2018 Covid-19 Vaccine (2023- 5 season) 2024 02/22/2022, 02/02/2021, 01/12/2021 Influenza Vaccine (#1) 2025 , 06/21/2021, 06/11/2021, Additional history exists DTaP/Tdap/Td Vaccine (7 - Td or Tdap) 08/07/2031 08/07/2021, 01/11/2012, 11/26/2001, Additional history exists Hepatitis B Screening Completed 02/26/2001 , 2000, 2000 Pneumococcal vaccine <65 Completed 002, 2000, 2000, Additional history exists Varicella Vaccines Completed 01/11/2012, 06/03/2001 HPV Vaccines Completed 06/14/2016, 02/2016, 12/12/[address] [place] [address] [facility] [employer] Care Teams Crane Hoist Or Lift Operator Relationship Specialty Start Date End Date Watts, Rocio Connell NP [address] [place] [address] PCP - General Nurse Practitioner 06/10/22
--- OUTSIDE RECORDS SUMMARY | 2025-02-08 11:44 | XMS_ITS | Clinical Summary ---
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 This disclosure is being madepursuant to the Care Everywhere program and may not contain all information available regarding this patient. Last updated 18.[facility] Allergies No known active allergies Medications * Be aware that medications may not be up to date on this document. Alwaysverify current medications with the patient. famotidine (PEPCID) 20 MG tablet Take 1 Tab by mouth once daily. 30 Tab 0 08/24/2014 Active aluminum & magnesium hydroxide (MAALOX) 200-200 MG/5ML suspension Take 10 mL by mouth 3 times daily with meals. 250 mL 0 08/25/2014 Active metoprolol tartrate (LOPRESSOR) 50 MG tablet Take 1 Tab by mouth once daily 2 Tab 0 09/08/2015 Active Family History Medical History Relation Name Comments Pacemaker Maternal Grandmother CVA<65(female) Mother Relation Name Status Comments Maternal Grandmother Mother Social History Tobacco Use Types Packs/Day Years Used Date Smoking Tobacco: Never Comments Unknown Sex and Gender Information Value Date Recorded Sex Assigned at Not on file Legal Sex Female 10:08 AM CDT Gender Identity Not on file Sexual Orientation Not on file Last Filed Vital Signs Vital Sign Reading Time Taken Comments Blood Pressure 109/85 09/21/2015 11:45 AM CDT Pulse 55 09/21/2015 11:45 AM CDT Temperature 37.2 C (98.9 F) 08/25/2014 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 Respiratory Rate 37 09/21/2015 11:45 AM CDT Oxygen Saturation 99% 09/21/2015 11:45 AM CDT Inhaled Oxygen Concentration - - Weight 58.6 kg (129 lb 3 oz) 09/08/2015 11:58 AM 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 Height 165 cm (5' 4.96) 09/08/2015 11:58 AM 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 Body Mass Index 21.52 09/08/2015 11:58 AM 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 Plan of Treatment Health Maintenance Due Date Last Done Comments HIV SCREENING 2015 HPV VACCINE (1 - 3-dose series) 2015 CHLAMYDIA/GONORRHEA SCREENING 2016 HEPATITIS C SCREENING 05/22/2018 DTAP/TDAP/TD VACCINES (1 - Tdap) 2019 HEPATITIS B VACCINE (1 of 3 - 19+ 3-dose series) 2019 COVID-19 VACCINE (1 - 2023-2 5 season) 2024 DEPRESSION SCREENING 07/08/2024 INFLUENZA VACCINE (#1) 2025 ZOSTER VACCINE (1 of 2) 2050 HIB VACCINE Aged Out No longer eligi ble based on patient's age to complete this topic MENINGOCOCCAL (Group B) VACC INE SHARED DECISION-MAKING Aged Out No longer eligibl e based on patient's age to complete this topic MENINGOCOCCAL GROUPS A/C/Y/W VACCINE Aged Out No longer eligible b ased on patient's age to complete this topic PNEUMOCOCCAL VACCINE Aged Out No long er eligible based on patient's age to complete this topic Insurance [facility] Care Teams [employer]man [employer] Relationship Specialty [place] [address] [place] [id number] PCP - General 07/03/19 Marco A Chopra MD [address] [address] Pediatrics 03/01/18
[2025-02-08 11:55] LABS: Alanine Aminotransferase 18 U/L (6-35); Albumin Level 4.4 g/dL (3.5-5.1); Alkaline Phosphatase 68 U/L (38-126); Anion Gap 7 mmol/L (4-12); Aspartate Amino Transferase 32 U/L (14-36); Bilirubin,Total 0.3 mg/dL (0.2-1.3); Blood Urea Nitrogen 9 mg/dL (7-17); Calcium 9.3 mg/dL (8.4-10.2); Carbon Dioxide 26 mmol/L (22-30); Chloride 103 mmol/L (98-107); Estimated Glomerular Filt Rate > 60; Glucose 92 mg/dL (65-110); Potassium 4.2 mmol/L (3.4-5.0); Sodium 136 mmol/L (137-145); Total Protein 7.6 g/dL (6.3-8.2)
[2025-02-08 12:30] LABS: Thyroid Stimulating Hormone 0.460 uIU/mL (0.465-4.680)
[2025-02-08 12:49] LABS: Vitamin B12 411.0 pg/mL (239-931)
== END 2025-02-08 11:18 | disposition home or self-care (01) ==
LOC: ANHLAB 11:21
PROVIDERS: Visit Provider Obstetrics & Gynecology
DX: R53.83 Other fatigue (principal)
CPT/HCPCS: 36415; 80053; 82306; 82607; 84443; 85027